=== PATIENT | male | born 1975 | race Caucasian/White ===

== ENCOUNTER 2024-07-08 13:38 | Outpatient (AMB) | payer MEDICAID, SELFPAY ==
[2024-07-08 14:07] VITALS: BP 124/85; PULSE 70; RESP 18; TEMP 35.7; O2SAT 97; BMI 36.9
--- NOTE | 2024-07-08 14:07 | ORTHONT_ITS ---
Vital signs 07/08/24 14:07 Height 1.85 m Height Method Stated Weight 127.006 kg Weight Measurement Method Standing Scale BMI 36.9 BP 124/85 H Blood Pressure Source Automatic Cuff Blood Pressure Location Left Upper Arm Position Sitting Respiration 18 Pulse 70 Pulse Source Monitor Temp 96.3 F L Temp Source Temporal Artery Scan Pulse Oximetry (%) 97 Oxygen Delivery Method Room Air Med/Allergies Allergies & Medications Allergies No Known Allergies Allergy (Verified 07/08/24 14:08) Medication Reconciliation lisinopril 20 mg tablet 20 mg PO QDAY 07/08/24 [History Confirmed 07/08/24] meloxicam 7.5 mg tablet 7.5 mg PO QDAY #45 tabs 07/08/24 [Rx] Exam Exam Patient is in no acute distress and is cooperative with the examination today. Breathing is nonlabored. In no respiratory distress. Bilateral extremities were evaluated and demonstrates sensation intact to light touch. Palpable pedal pulses are present. No significant edema is present. Bilateral hips were examined. The patient has no pain with log roll of the hips. Internal rotation to 30 degrees and external rotation to 30 degrees is painless. Negative FADIR. The left knee was examined. The left knee is in varus alignment. Range of motion from 0-115 degrees. Knee is stable to varus and valgus as well as AP translation with <5mm. Patient has a negative McMurrays. There is no pain with patellofemoral compression and no crepitus noted. The knee is tender to palpation medially. The right knee was also examined. The right knee is in varus alignment. Range of motion from 0-120 degrees. Knee is stable to varus and valgus as well as AP translation with <5mm. Patient has a negative McMurrays. There is no pain with patellofemoral compression and no crepitus noted. The knee is tender to palpation medially. Assessment and Plan Problem List (1) Degenerative arthritis of knee, bilateral: Status: Acute Plan: Patient is a pleasant 48-year-old male with bilateral knee pain and bilateral knee arthritis. We need to see x-rays to see what it looks like currently. We discussed nonoperative options. We will likely do injections at some point. We will do a phone visit to go over the x-ray results Office Procedures S Level of Care Nursing/Assessment Patient Status: Initial/New Patient Nursing Assessment/Reassesment: Medication Reconciliation, Update PMH in EMR and Vital Signs Coordination of Care: Complex Care and Chronic Disease 1-5, Education Complex Pt/Fam, Consent,records obtained, informed consent, 1 Ins Authorization, Lab and Imaging orders, Results/Orders obtained and Staff clarify orders New Patient Charge New Patient Point Assignment: 1124 New Patient Point Charge: HAIRSPRING TRUER Level 4 ([id number]) MA Intake Visit Data Collection New Patient or Established: New Patient (never been to [facility]) Reason for Visit:: LEFT KNEE PAIN Seen by Clinical Staff ONLY (RN/MA): No Billposter Required: No PCP or OBGYN visit in last 3 months: Yes Hx Now: No Do You Feel Safe at Home: Yes Authorities Contacted: N/A Questionairres Past Medical History Past Medical History Have you ever been diagnosed with any of the following: Subjective Visit Visit for: new patient and knee Immunization / Flu Flu Vaccine in the Last 12 Months: No Flu Vaccine Exclusion Criteria: No Exclusion Criteria History of Present Illness Chief complaint: Bilateral knee pain This is a 48-year-old male with bilateral knee pain. He has tried ibuprofen. He has not had any injections. The pain is on the medial aspect of his knee and has been bothering him for quite a while. He Works in security. Pain Pain level (0-10): 7 Pain duration: ALL DAY Pain location: inside (medial), outside (lateral) and anterior Pain quality: aching Associated signs & symptoms: none Ambulatory data Ambulatory device: none Treatments Improvement with previous injections: No Improvement with PT: No Improvement with NSAIDS: no Review of Systems Review of Systems: All systems negative unless otherwise noted in HPI.
== END 2024-07-08 14:30 | disposition home or self-care (01) ==
PROVIDERS: PCP Physician Assistant; Referring Provider Physician Assistant; Supervising Provider Orthopaedic Surgery Adult Reconstructive Orthopaedic Surgery; Visit Provider Orthopaedic Surgery Adult Reconstructive Orthopaedic Surgery
DX: M17.0 Bilateral primary osteoarthritis of knee (principal); M25.562 Pain in left knee; M25.561 Pain in right knee
CPT/HCPCS: 99204; G0463

== ENCOUNTER 2024-07-22 10:58 | Outpatient (AMB) | payer MEDICAID, SELFPAY ==
--- NOTE | 2024-07-22 10:55 | ORTHONT_ITS ---
Med/Allergies Allergies & Medications Allergies No Known Allergies Allergy (Verified 07/22/24 10:55) Medication Reconciliation lisinopril 20 mg tablet 20 mg PO QDAY 07/08/24 [History Confirmed 07/22/24] meloxicam 7.5 mg tablet 7.5 mg PO QDAY #45 tabs 07/08/24 [Rx Confirmed 07/22/24] Subjective Visit Visit for: follow up visit and x-rays Immunization / Flu Flu Vaccine in the Last 12 Months: No Flu Vaccine Exclusion Criteria: No Exclusion Criteria History of Present Illness Chief complaint: left knee pain Mich is here for a phone visit. He is here to discuss x-ray results. We obtained a left knee x-rays from [facility]. Left knee x-rays demonstrate [id number] arthritis on the left with complete obliteration of the medial joint space Pain Pain level (0-10): 8 Pain duration: CONSTANT Pain location: anterior Pain quality: aching Pain timing: increases with activity Ambulatory data Ambulatory device: none Treatments Improvement with previous injections: No Improvement with PT: No Improvement with NSAIDS: no Review of Systems Review of Systems: All systems negative unless otherwise noted in HPI. Assessment and Plan Problem List (1) Degenerative arthritis of knee, bilateral: Status: Acute Plan: Patient is a pleasant 48-year-old male with bilateral knee pain and bilateral knee arthritis. He has complete obliteration of the medial joint space. He has not tried any injections. We discussed anti-inflammatories and injections and we will get him set up with injections. Office Procedures GNS Level of Care Nursing/Assessment Patient Status: Established Patient Nursing Assessment/Reassesment: Medication Reconciliation, Update PMH in EMR and Vital Signs Coordination of Care: Complex Care and Chronic Disease 1-5, Education Complex Pt/Fam, Consent,records obtained, informed consent, Results/Orders obtained and Staff clarify orders Established Patient Charge Established Patient Point Assignment: 95 Telehealth Telemed Phone/Video with patient at home & Dr,PA,LEAD RADIOLOGIC TECHNOLOGIST: Yes
== END 2024-07-22 11:22 | disposition home or self-care (01) ==
LOC: HODSRG 10:58
PROVIDERS: PCP Physician Assistant; Referring Provider Physician Assistant; Supervising Provider Orthopaedic Surgery Adult Reconstructive Orthopaedic Surgery; Visit Provider Orthopaedic Surgery Adult Reconstructive Orthopaedic Surgery
DX: M17.0 Bilateral primary osteoarthritis of knee (principal)
CPT/HCPCS: 99212; G0463

== ENCOUNTER 2024-08-08 14:47 | Outpatient (AMB) | payer MEDICAID, SELFPAY ==
[2024-08-08 15:03] VITALS: BP 125/81; PULSE 77; RESP 18; TEMP 36.7; O2SAT 96; BMI 38.0
--- NOTE | 2024-08-08 15:03 | ORTHONT_ITS ---
Vital signs 08/08/24 15:03 08/08/24 15:06 Height 1.85 m 1.85 m Height Method Stated Stated Weight 130.209 kg 130.209 kg Weight Measurement Method Standing Scale Standing Scale BMI 38.0 38.0 BP 125/81 125/81 Blood Pressure Source Automatic Cuff Automatic Cuff Blood Pressure Location Right Upper Arm Right Upper Arm Position Sitting Sitting Respiration 18 18 Pulse 77 77 Pulse Source Monitor Monitor Temp 98.1 F 98.1 F Temp Source Temporal Artery Scan Temporal Artery Scan Pulse Oximetry (%) 96 96 Oxygen Delivery Method Room Air Room Air Med/Allergies Allergies & Medications Allergies No Known Allergies Allergy (Verified 07/22/24 10:55) Exam Exam Patient is in no acute distress and is cooperative with the examination today. Breathing is nonlabored. In no respiratory distress. Bilateral extremities were evaluated and demonstrates sensation intact to light touch. Palpable pedal pulses are present. No significant edema is present. Bilateral hips were examined. The patient has no pain with log roll of the hips. Internal rotation to 30 degrees and external rotation to 30 degrees is painless. Negative FADIR. The left knee was examined. The left knee is in varus alignment. Range of motion from 0-115 degrees. Knee is stable to varus and valgus as well as AP translation with <5mm. Patient has a negative McMurrays. There is no pain with patellofemoral compression and no crepitus noted. The knee is tender to palpation medially. The right knee was also examined. The right knee is in varus alignment. Range of motion from 0-120 degrees. Knee is stable to varus and valgus as well as AP translation with <5mm. Patient has a negative McMurrays. There is no pain with patellofemoral compression and no crepitus noted. The knee is tender to palpation medially. Bilateral knee x-rays in [facility] were reviewed by me today. They read as mild arthritis on the left. The patient actually has [id number] arthritis with complete obliteration of the medial joint space and osteophytes on the left. On the right, he has moderate joint space narrowing. Assessment and Plan Problem List (1) Degenerative arthritis of knee, bilateral: Status: Acute Plan: Patient is a pleasant 48-year-old male with bilateral knee pain and bilateral knee arthritis. The patient has complete obliteration of medial joint space and we will try injections today has not tried any before. We also discussed Weight loss Recommend knee cortisone injections as patient would like to proceed with conservative treatment at this time. The risks and benefits of the procedure were reviewed with the patient and patient gave verbal consent to continue with the procedure. Procedure: performed by Dr. Mcdowell Using sterile technique the Bilateral knees were thoroughly prepped with alcohol, and approximately 1 cc of Kenalog 40 mg/mL and 4 cc of 1% lidocaine was injected into each knee without resistance into the medial tibial femoral joint space. The patient tolerated the procedure. Office Procedures GNS Level of Care Nursing/Assessment Patient Status: Established Patient Nursing Assessment/Reassesment: BP Monitoring, Medication Reconciliation, Update PMH in EMR and Vital Signs Coordination of Care: Complex Care and Chronic Disease 1-5, Consent,records obtained, informed consent, Lab and Imaging orders and Results/Orders obtained Established Patient Charge Established Patient Point Assignment: 95 Established Patient Point Charge: EP Level 3 (80-115) Surgical Proc/IM SQ injection Major Surgical Procedure: Yes (BILATERAL KNEE INJECTION ) MA Intake Visit Data Collection New Patient or Established: Established Patient (seen at [facility] within 3 years) Reason for Visit:: KNEE INJECTION Seen by Clinical Staff ONLY (RN/MA): No Verbal consent obtained for Telemed visit?: No [employer] Program Coordinator Required: No PCP or OBGYN visit in last 3 months: No Hx Now: No Do You Feel Safe at Home: Yes Authorities Contacted: N/A Questionairres Past Medical History Past Medical History Have you ever been diagnosed with any of the following: Subjective Visit Visit for: follow up visit Immunization / Flu Flu Vaccine in the Last 12 Months: No Flu Vaccine Exclusion Criteria: No Exclusion Criteria History of Present Illness Chief complaint: KNEE INJECTION This is a 48-year-old male with bilateral knee pain. He has tried ibuprofen. He has not had any injections. The pain is on the medial aspect of his knee and has been bothering him for quite a while. He Works in security. Pain Pain level (0-10): 8 Pain duration: ALL DAY Pain location: inside (medial), outside (lateral), anterior and posterior Pain quality: sharp Associated signs & symptoms: none Ambulatory data Ambulatory device: none Treatments Improvement with previous injections: No Improvement with PT: No Improvement with NSAIDS: no Review of Systems Review of Systems: All systems negative unless otherwise noted in HPI.
[2024-08-08 15:06] VITALS: BP 125/81; PULSE 77; RESP 18; TEMP 36.7; O2SAT 96; BMI 38.0
== END 2024-08-08 15:26 | disposition home or self-care (01) ==
LOC: HODSRG 14:47
PROVIDERS: PCP Physician Assistant; Referring Provider Physician Assistant; Supervising Provider Orthopaedic Surgery Adult Reconstructive Orthopaedic Surgery; Visit Provider Orthopaedic Surgery Adult Reconstructive Orthopaedic Surgery
DX: M17.0 Bilateral primary osteoarthritis of knee (principal)
CPT/HCPCS: 20610; 99213; J3301; J3490; G0463